=== PATIENT | female | born 1925 | race Hispanic/Latino ===

== ENCOUNTER 2016-10-25 07:02 | Inpatient (IN) | payer MEDICARE, BC ==
--- NOTE | 2016-10-25 08:14 | ED PDOC ---
Arrival/HPI <Lalit Flood P - Last Filed: 10/25/16 11:12> - General Historian: Patient, Spouse - History of Present Illness Time/Duration: Prior to Arrival Symptom Onset: Sudden Symptom Course: Unchanged Quality: Aching Severity Level: Moderate <Beverly Aldanay - Last Filed: 10/25/16 11:18> - General Chief Complaint: Trauma Time Seen by Provider: 10/25/16 07:08 - History of Present Illness Narrative History of Present Illness (Text): 10/25/16 08:06 89yo F with PMHx of VT, HTN, Glaucoma, COPD, Macular degeneration, Depression, DM, Arthritis, GI Ulcers, chronic constipation here for evaluation of fall. Patient states that she was at home using the restroom this morning. She got up and had a fall on to her bottom. She states that she has had multiple similar falls in the past. Her came to assist her and had a fall himself. She crawled to her Life assist button which was by her bed in order to have EMS bring them to the hospital. She also c/o some chest discomfort that started yesterday morning, she states that it feels like a sharp, burning type of pain. She states she had similar problems many years ago. She does report eating some vinegar pickles two nights ago. Denies any headaches. no loss of consciousness. No head trauma. No N/V/D. No Abd pain. No other complaints PMHx: VT, HTN, Glaucoma, COPD, macular degeneration, Depression, DM, Arthritis, GI ulcers, Chronic constipation PSHx: Coronory Stents, Cataract Sx, Breast Bx Social Hx: former 1/2ppd for 20 years smoker. Lives at home with . (Abdon Aldana) Past Medical History - Provider Review Nursing Documentation Reviewed: Yes - Infectious Disease Hx of Infectious Diseases: None - Tetanus Immunization Tetanus Immunization: Unknown - Cardiac Hx Cardiac Disorders: Yes (VT; Cardiac stents) Hx Congestive Heart Failure: Yes Hx Hypertension: Yes - Pulmonary Hx Chronic Obstructive Pulmonary Disease (COPD): Yes - Neurological Hx Neurological Disorder: No - HEENT Hx HEENT Disorder: Yes Hx Cataracts: Yes (Surgery L(10/23). R(06/26). B/L Lens Implant.) Hx Glaucoma: Yes Hx Macular Degeneration: Yes (Laser to bilateral eyes.) - Renal Hx Renal Disorder: No - Endocrine/Metabolic Hx Diabetes Mellitus Type 2: Yes - Hematological/Oncological Hx Blood Disorders: No - Integumentary Hx Dermatological Disorder: Yes - Musculoskeletal/Rheumatological Hx Arthritis: Yes - Gastrointestinal Hx Gastrointestinal Disorders: Yes (CONSTIPATION,H/O GI BLEED,ULCER) - Genitourinary/Gynecological Hx Genitourinary Disorders: Yes (URGENCY,H/O ACUTE CYSTITIS,FREQ UTI) Hx Reproductive Disorders: No - Psychiatric Hx Depression: Yes Hx Physical Abuse: No Hx Substance Use: No - Surgical History Hx Joint Replacement: Yes Hx Orthopedic Surgery: Yes (R HIP) - Anesthesia Hx Anesthesia: Yes - Suicidal Assessment Feels Threatened In Home Enviroment: No <Abdon Aldana - Last Filed: 10/25/16 11:18> Family/Social History - Physician Review Nursing Documentation Reviewed: Yes Family/Social History: Unknown Family HX Smoking Status: Never Smoked Hx Alcohol Use: No Hx Substance Use: No Hx Substance Use Treatment: No <Abdon Aldana - Last Filed: 10/25/16 11:18> Allergies/Home Meds <Lalit Flood - Last Filed: 10/25/16 11:12> <Abdon Aldana - Last Filed: 10/25/16 11:18> Allergies/Adverse Reactions: Allergies acetaminophen [From Percocet] Allergy (Verified 03/25/16 14:05) SWELLING codeine Allergy (Verified 03/25/16 14:05) REDNESS docusate sodium [From Colace] Allergy (Verified 03/25/16 14:05) SWELLING ibuprofen [From Motrin] Allergy (Verified 03/25/16 14:05) SWELLING oxycodone HCl [From Percocet] Allergy (Verified 03/25/16 14:05) SWELLING Home Medications: Home Meds Medication Instructions Recorded Confirmed Ticagrelor [Brilinta] 90 mg PO BID 05/28/12 04/19/15 Acetaminophen [Tylenol 325mg tab] 650 mg PO Q4 PRN 03/25/16 03/25/16 Review of Systems - Physician Review All systems were reviewed & negative as marked: Yes - Review of Systems Constitutional: Normal Eyes: Normal Cardiovascular: Chest Pain. absent: Edema, Calf Pain, ARITA Gastrointestinal: absent: Abdominal Pain, Nausea, Vomiting Genitourinary Female: Normal Musculoskeletal: Arthralgias, Back Pain Skin: Normal Neurological: Normal Endocrine: Normal <Abdon Aldana - Last Filed: 10/25/16 11:18> Physical Exam Vital Signs Reviewed: Yes Temperature: Afebrile Blood Pressure: Hypertensive Pulse: Regular Respiratory Rate: Normal Appearance: Positive for: Well-Appearing, Non-Toxic, Comfortable Pain Distress: Mild Mental Status: Positive for: Alert and Oriented X 3 - Systems Exam Head: Present: Atraumatic, Normocephalic Pupils: Present: PERRL Extroacular Muscles: Present: EOMI Conjunctiva: Present: Normal Mouth: Present: Moist Mucous Membranes Neck: Present: Normal Range of Motion. No: MIDLINE TENDERNESS Respiratory/Chest: Present: Clear to Auscultation. No: Good Air Exchange, Respiratory Distress, Accessory Muscle Use, Wheezes, Rhonchi Cardiovascular: Present: Normal S1, S2 Abdomen: Present: Hernias (large ventral hernia). No: Tenderness, Distention, Rebound, Guarding Back: Present: Other (large external hemmorrhoids. no midline tenderness. Paravertebral tenderness) Upper Extremity: Present: Normal Inspection, Normal ROM, NORMAL PULSES. No: Edema Lower Extremity: Present: Normal Inspection, NORMAL PULSES. No: Edema, CALF TENDERNESS Neurological: Present: GCS=15 Skin: Present: Warm, Dry, Normal Color Psychiatric: Present: Alert, Oriented x 3 <Abdon Aldana - Last Filed: 10/25/16 11:18> Vital Signs Temp Pulse Resp BP Pulse Ox 10/25/16 09:06 80 18 141/60 96 10/25/16 08:15 88 18 161/52 H 100 10/25/16 07:44 97.9 F 88 18 196/82 H 100 10/25/16 07:38 97.8 F 86 18 196/82 H 100 Medical Decision Making <Lalit Flood - Last Filed: 10/25/16 11:12> <Abdon Aldana - Last Filed: 10/25/16 11:18> ED Course and Treatment: A 89 year old female brought in for further evaluation after fall. In agreement with resident note, which includes further HPI details. Patient was seen and evaluated with resident, came up with plan and treatment together. (Lalit Flood) 10/25/16 09:38 89yo F here for evaluation after fall. Also with burning chest pain for 1 day - Maalox - CBC/CMP - Troponin - UA - CT head - CXR - EKG 10/25/16 10:29 EKG - interpreted by me. Sinus @83. Left axis deviation. No apparent ST changes. Upon reevaluation. Maalox helped a little with the epigastric pain, however, she is still reporting some discomfort. UA shows UTI. Culture sent. CT Head negative Troponin negative 10/25/16 11:06 Rocephin given for UTI CXR - interpreted by me. Left upper lobe small infiltrate vs. mass. Will require follow up. Will make medical team aware. Discussed case with Dr. Morris who accepts patient for admission. Solids Control Technician aware of admission and will come to evaluate the patient. (Abdon Aldana) - Lab Interpretations Lab Results: 10/25/16 08:30 10/25/16 08:30 Lab Results 10/25/16 08:30: Sodium 138, Potassium 4.4, Chloride 98, Carbon Dioxide 28, Anion Gap 16, BUN 23 H, Creatinine 0.9, Est GFR ( Amer) > 60, Est GFR ( Non-Af Amer) 59, Random Glucose 112 H, Calcium 9.6, Total Bilirubin 0.4, AST 34 , ALT 25, Alkaline Phosphatase 71, Troponin I < 0.01 D, Total Protein 7.4, Albumin 4.0, Globulin 3.4, Albumin/Globulin Ratio 1.2 10/25/16 08:30: Urine Color Yellow, Urine Appearance Sl cloudy, Urine pH 8.0, Ur Specific [place] 1.015, Urine Protein 30 H, Urine Glucose (UA) Negative, Urine Ketones Negative, Urine Blood Negative, Urine Nitrate Positive H, Urine Bilirubin Negative, Urine Urobilinogen 0.2, Ur Leukocyte Esterase Moderate H, Urine RBC Negative, Urine WBC Tntc, Ur Epithelial Cells 0 - 2, Urine Bacteria Large 10/25/16 08:30: WBC 9.7 D, RBC 3.39 L, Hgb 10.4 L, Hct 31.5 L, MCV 92.9, MCH 30.7, MCHC 33.0, RDW 13.9, Plt Count 297, MPV 8.7, Gran % 69.4 H, Lymph % (Auto ) 18.8 L, [place] % (Auto) 8.1 H, Eos % (Auto) 3.1, Baso % (Auto) 0.6, Gran # 6.73 H, Lymph # 1.8, [place] # 0.8 H, Eos # 0.3, Baso # 0.06 - RAD Interpretation Radiology Orders: 10/25/16 08:14 HEAD W/O CONTRAST [CT] Stat CHEST ONE VIEW [RAD] Stat - Medication Orders Current Medication Orders: Famotidine (Pepcid) 20 mg PO BID DEJON Insulin Human Lispro (Humalog Low) 0 units SC ACHS DEJON PRN Reason: Protocol Discontinued Medications Al Hydrox/Mg Hydrox/Simethicone (Maalox Plus 30 Ml) 30 ml PO STAT STA Stop: 10/25/16 08:25 Last Admin: 10/25/16 08:49 Dose: 30 ml Ceftriaxone Sodium (Rocephin 1 Gram Ivpb) 1 gm in 100 mls @ 200 mls/hr IVPB STAT STA PRN Reason: Protocol Stop: 10/25/16 09:25 Last Admin: 10/25/16 09:30 Dose: 200 mls/hr - PA / LEAD DATABASE ADMINISTRATOR / Resident Statement / has reviewed & agrees with the documentation as recorded. MD/ has examined the patient and agrees with the treatment plan. - Scribe Statement The provider has reviewed the documentation as recorded by the Scribe <Lalit Flood - Last Filed: 10/25/16 11:12> - PA / LEAD DATABASE ADMINISTRATOR / Resident Statement / has reviewed & agrees with the documentation as recorded. / has examined the patient and agrees with the treatment plan. <Abdon Aldana - Last Filed: 10/25/16 11:18> - Scribe Statement Lynne Virgen Provider Scribe Attestation: All medical record entries made by the Scribe were at my direction and personally dictated by me. I have reviewed the chart and agree that the record accurately reflects my personal performance of the history, physical exam, medical decision making, and the department course for this patient. I have also personally directed, reviewed, and agree with the discharge instructions and disposition. (Lalit Flood) Disposition/Present on Arrival <Lalit Flood - Last Filed: 10/25/16 11:12> - Present on Arrival Any Indicators Present on Arrival: No History of DVT/PE: No History of Uncontrolled Diabetes: No Urinary Catheter: No History of Decub. Ulcer: No History Surgical Site Infection Following: None - Disposition Have Diagnosis and Disposition been Completed?: Yes Disposition Time: :17 Patient Plan: Admission <Abdon Aldana - Last Filed: 10/25/16 11:18> - Disposition Diagnosis: UTI (urinary tract infection), Fall, Chest pain Disposition: HOSPITALIZED Patient Problems: Current Active Problems Problem Status Onset Chest pain Acute Fall Acute UTI (urinary tract infection) Acute Condition: GOOD Discharge Instructions (ExitCare): Chest Pain (ED)
[2016-10-25] MEDS ORDERED: Alum-Mag Hydrox-Simethicone Susp (30 mL) PO STA (08:24)
[2016-10-25 08:45] LABS: BASO # 0.06 K/mm3 (0.0-2.0); BASO % 0.6 % (0.0-3.0); EOS # 0.3 (0.0-0.7); EOS % 3.1 % (1.5-5.0); GRAN # 6.73 (1.4-6.5); GRAN % 69.4 % (50.0-68.0); HEMOGLOBIN 10.4 g/dL (12.0-16.0); LYMPH # 1.8 (1.2-3.4); LYMPH % 18.8 % (22.0-35.0); MEAN CELL VOLUME 92.9 fl (80.0-105.0); MEAN CORPUSCULAR HEMOGLOBIN 30.7 pg (25.0-35.0); MEAN PLATELET VOLUME 8.7 fl (7.0-11.0); MONO # 0.8 (0.1-0.6); MONO % 8.1 % (1.0-6.0); PLATELET COUNT 297 10^3/uL (120.0-450.0); RBC 3.39 10^6/uL (3.5-6.1); RED CELL DISTRIBUTION WIDTH 13.9 % (11.5-14.5); URINE BILIRUBIN NEGATIVE (NEGATIVE); URINE BLOOD NEGATIVE (NEGATIVE); URINE GLUCOSE (UA) NEGATIVE (NEGATIVE); URINE LEUKOCYTE ESTERASE MODERATE Leu/uL (NEGATIVE); URINE NITRATE POSITIVE (NEGATIVE); URINE PROTEIN 30 mg/dL (<30 mg/dL); URINE UROBILINOGEN 0.2 E.U./dL (<1 E.U./dL); WHITE BLOOD COUNT 9.7 10^3/ul (4.5-11.0)
[2016-10-25 08:46] LABS: URINE APPEARANCE SL CLOUDY (CLEAR); URINE COLOR YELLOW (YELLOW)
[2016-10-25 08:54] LABS: URINE EPITHELIAL CELLS 0 - 2 /hpf (0-5); URINE RBC NEGATIVE /hpf (0-2); URINE WBC TNTC /hpf (0-6)
[2016-10-25 08:55] LABS: ALB/GLOB RATIO 1.2 (1.1-1.8); ALT/SGPT 25 U/L (7-56); AST/SGOT 34 U/L (15-39); BLOOD UREA NITROGEN 23 mg/dL (7-21); CALCIUM 9.6 mg/dL (8.4-10.5); GFR AFRICAN-AMERICAN > 60; GFR NON-AFRICAN AMERICAN 59; URINE BACTERIA LARGE (NEG)
[2016-10-25] MEDS ORDERED: cefTRIAXone 1 gm 1 GM/100 ML BAG IVPB STA (08:56)
[2016-10-25 09:12] LABS: TROPONIN I < 0.01 ng/mL
--- NOTE | 2016-10-25 10:16 | CT ---
PROCEDURE: CT HEAD WITHOUT CONTRAST. HISTORY: fall COMPARISON: None available. TECHNIQUE: Axial computed tomography images were obtained through the head/brain without intravenous contrast. Radiation dose: Total exam DLP = 690 mGy-cm. This CT exam was performed using one or more of the following dose reduction techniques: Automated exposure control, adjustment of the mA and/or kV according to patient size, and/or use of iterative reconstruction technique. FINDINGS: HEMORRHAGE: No intracranial hemorrhage. BRAIN: No mass effect or edema. Chronic periventricular white matter ischemic disease VENTRICLES: Unremarkable. No hydrocephalus. CALVARIUM: Unremarkable. PARANASAL SINUSES: Unremarkable as visualized. No significant inflammatory changes. MASTOID AIR CELLS: Unremarkable as visualized. No inflammatory changes. OTHER FINDINGS: None. IMPRESSION: No acute hemorrhage.
--- NOTE | 2016-10-25 10:26 | RAD ---
PROCEDURE: CHEST RADIOGRAPH, 1 VIEW HISTORY: fall COMPARISON: 03/21/2016 FINDINGS: LUNGS: There is a minimal density at the left lung apex. Follow-up is recommended to rule out mass or infiltrate. PLEURA: No pneumothorax or pleural fluid seen. CARDIOVASCULAR: Normal. OSSEOUS STRUCTURES: No significant abnormalities. VISUALIZED UPPER ABDOMEN: Normal. OTHER FINDINGS: None. IMPRESSION: There is a minimal density at the left lung apex. Follow-up is recommended to rule out mass or infiltrate.
--- NOTE | 2016-10-25 12:08 | CP.PCM.HP ---
History of Present Illness - History of Present Illness History of Present Illness: HPI: 89 year old female presents due to fall this morning. She was walking out of the bathroom when she fell on her bottom. She denies dizziness, lightheadness , and loss of consciousness at the time. She says she did not hit her head, although she has fallen in the past and did hit her head last time. Her tried to help her, but he also fell. She also complains of chest pain and heartburn for the past day, which was triggered by eating pickles and spicy fish. She also says she gets frequent UTIs because she only has 1 working kidney ; they cannot do surgery because she had a bad reaction to anesthesia in the past. She did not take any medications or eat breakfast this morning. PMH: DC s/p stent, HTN, DM2, constipation, scoliosis, partial mastectomy, CHF, COPD, cataracts s/p surgery, glaucoma, macular degeneration, arthritis, GI bleed , ulcer, depression, acute cystitis, frequent UTI SH: lives at home with her ; denies alcohol, tobacco, and drug use FH: unknown All: acetaminophen, codeine, docusate sodium, ibuprofen, oxycodone HCl Meds: Pepcid, Humalog, Brilinta, Januvia, Prandin, Klor-Con, Lopressor, Glucophage, Cozaar, Imdur, Glucotrol, Lasix, Lanoxin, Lotrisone, Catapres, Oscal -D, Aspirin, Tylenol Present on Admission - Present on Admission Any Indicators Present on Admission: No Review of Systems - Hematologic/Lymphatic Additional comments: Constitutional: pt denies fever, chills, generalized weakness ENT: pt denies dysphagia, otalgia, hearing deficit, rhinorrhea Eyes: pt denies sudden loss of vision, diplopia, blurred vision MSK: pt denies muscle stiffness, joint pain, extremity cramping Cardio: +pt admits to mild sob, mild cp; Pulm: pt denies cough, hemoptysis, wheeze GI: +pt admits to heart burn; pt admits to gas. pt denies loss of appetite, abdominal pain, constipation, melena, n/v/d : pt denies burning on urination, urinary frequency, hematuria, urinary urgency Neuro: pt denies paresis, paresthesia, dizziness, renner, numbness, tingling Derm: pt denies skin changes, lesions, nail changes Endo: pt denies intolerance to heat/cold, diaphoresis, night sweats, polydipsia Psych: pt denies anxiety, depression, mood changes Past Patient History - Infectious Disease Hx of Infectious Diseases: None - Tetanus Immunizations Tetanus Immunization: Unknown - Past Social History Smoking Status: Never Smoked - CARDIAC Hx Cardiac Disorders: Yes (DC; Cardiac stents) Hx Congestive Heart Failure: Yes Hx Hypertension: Yes - PULMONARY Hx Chronic Obstructive Pulmonary Disease (COPD): Yes - NEUROLOGICAL Hx Neurological Disorder: No - HEENT Hx HEENT Problems: Yes Hx Cataracts: Yes (Surgery L(10/23). R(06/26). B/L Lens Implant.) Hx Glaucoma: Yes Hx Macular Degeneration: Yes (Laser to bilateral eyes.) - RENAL Hx Chronic Kidney Disease: No - ENDOCRINE/METABOLIC Hx Diabetes Mellitus Type 2: Yes - HEMATOLOGICAL/ONCOLOGICAL Hx Blood Disorders: No - INTEGUMENTARY Hx Dermatological Problems: Yes - MUSCULOSKELETAL/RHEUMATOLOGICAL Hx Arthritis: Yes - GASTROINTESTINAL Hx Gastrointestinal Disorders: Yes (CONSTIPATION,H/O GI BLEED,ULCER) - GENITOURINARY/GYNECOLOGICAL Hx Genitourinary Disorders: Yes (URGENCY,H/O ACUTE CYSTITIS,FREQ UTI) Hx Reproductive Disorders: No - PSYCHIATRIC Hx Depression: Yes Hx Physical Abuse: No Hx Substance Use: No - SURGICAL HISTORY Hx Joint Replacement: Yes Hx Orthopedic Surgery: Yes (R HIP) - ANESTHESIA Hx Anesthesia: Yes Meds Allergies/Adverse Reactions: Allergies Allergy/AdvReac Type Severity Reaction Status Date / Time acetaminophen [From Percocet] Allergy SWELLING Verified 03/25/16 14:05 codeine Allergy REDNESS Verified 03/25/16 14:05 docusate sodium [From Colace] Allergy SWELLING Verified 03/25/16 14:05 ibuprofen [From Motrin] Allergy SWELLING Verified 03/25/16 14:05 oxycodone HCl [From Percocet] Allergy SWELLING Verified 03/25/16 14:05 Physical Exam - Additional Findings Additional findings: VS as above Constitutional: a&o x 4, nad Head and Neck: neck supple, no jvd, trachea midline, carotid midline, no cervical/head mass Eyes: kia, nonicteric sclera, eom intact ENT: auditory acuity grossly intact, throat not congested, no nasal deformity Cardio: +chest pain relatively reproducible; rrr, no m/r/g, no carotid bruit, nml s1, s2 Pulm: no accessory muscle use, equal nml breath sounds bilaterally, ctab Abd: s/nt/nd, nbs x 4 q, no palpable masses Derm: no rashes, no ulcers, no lesions Extr: +TTP b/l LE, more on R than left; +mild swelling on L LE; mild varicosities. no edema, no cyanosis, no calf tenderness, no lesions Neuro: cn II-XII grossly intact, ue and le 5/5 muscle strength bilaterally, no los ue, le bilaterally and core Results - Vital Signs Recent Vital Signs: Last Vital Signs Temp 97.9 F 10/25/16 07:44 Pulse 80 10/25/16 09:06 Resp 18 10/25/16 09:06 BP 141/60 10/25/16 09:06 Pulse Ox 96 10/25/16 09:06 - Labs Result Diagrams: 10/25/16 08:30 10/25/16 08:30 Assessment & Plan - Assessment and Plan (Free Text) Assessment: 89 F presented with c/o chest pain and possible syncopal event Plan: 1. Chest pain r/o ACS vs PE vs Pneumonia vs MSK Stable vs unstable angina - Patient has a cardiac history of DC and s/p stent placement - EKG shows old infarcts, but no acute changes will f/u EKG x 2 q6h - Troponin negative X 1 will f/u x 2 q6h - ECHO ordered - Lipid panel ordered - TSH ordered Pulmonary embolism - f/u D dimer - f/u Duplex b/l LE ordered - Well's criteria for PE: 4.5 Pneumonia - CXR 10/25: minimal density at L lung apex; follow recommended to rule out mass or infiltrate [pls see official read] changed from previous CXR on admission - f/u CT chest without contrast - Levaquin 750mg ivpb daily Day 1 Empiric treatment for inpatient pneumonia with comorbidities of COPD, DM, and history of tobacco abuse - Pulmonology consult: Dr. Zhao - f/u reccs Musculoskeletal - Pain reproducible - If all other causes ruled out, consider muscle relaxer or NSAID 2. Fall with possible syncopal event r/o cardiac vs neuro vs mechanical Cardiac - Workup as above Neuro - Head CT 10/25: negative for acute bleed - f/u Carotid U/s - f/u RPR, 25-OH vitamin D, vitamin b12, folate - Consult Neurology: Dr. Crockett- f/u [facility] Mechanical - patient uses a walker at home and has had multiple falls in the past - f/u Lumbosacral XR - f/u orthostatics - patient is allergic to acetaminophen and ibuprofen- will address pain medication prn 3. UTI - UA 10/25 Protein +30 + Nitrates + Moderate Leuk esterase + Large bacteria - f/u Urine Culture - f/u blood culture - Patient got 1 dose Rocephin in ED - Continue Rocephin 1gm ivpb daily 4. Hx of CAD s/p stents - f/u Digoxin level - Continue home Ticagrelor 5. Hx of Diabetes Mellitus - f/u HgbA1c - low dose RISS - hold oral hyperglycemics 6. Hx of HTN - Cozaar, Imdur, Catapres 7. Hx of CHF - Lasix 8. Hx of Arthritis - Oscal-D DVT/GI PPX - On Ticagrelor; pepcid
[2016-10-25] MEDS: Insulin Lispro (humaLOG) LOW Coverage SC SCH ×3 (12:19→22:30)
[2016-10-25 13:20] VITALS: BMI 19.3
[2016-10-25] MEDS ORDERED: Pneumococcal 23-Valent Vaccine IM ONE (13:21)
--- NOTE | 2016-10-25 16:08 | CT ---
PROCEDURE: CT Chest without contrast HISTORY: RUL/[place] Consolidation COMPARISON: None. TECHNIQUE: Contiguous axial images were obtained through the chest without intravenous contrast enhancement. Sagittal and coronal reconstructions were performed. Radiation dose (DLP): mGy-cm. This CT exam was performed using one or more of the following dose reduction techniques: Automated exposure control, adjustment of the mA and/or kV according to patient size, and/or use of iterative reconstruction technique. FINDINGS: LUNGS: 2.7 centimeter x 3.0 centimeter wedge-shaped area of consolidation in the left apical segment extending to the pleural margin. The margins are significantly irregular. While this could simply represent consolidation, neoplasm is not excluded and correlation with PET-CT scan is recommended. MEDIASTINUM: Unremarkable thoracic aorta. No aneurysm. Normal sized heart. Main pulmonary artery unremarkable. No vascular congestion. No lymphadenopathy. Extensive calcific nodularity of the left lobe of thyroid gland; correlate with thyroid ultrasound if clinically indicated. PLEURA: No pleural fluid. No pneumothorax. BONES: No fracture. No destructive lesion. UPPER ABDOMEN: Grossly unremarkable. OTHER FINDINGS: None. IMPRESSION: 2.7 centimeter x 3.0 centimeter wedge-shaped area of consolidation in the left apical segment extending to the pleural margin. The margins are significantly irregular. While this could simply represent consolidation, neoplasm is not excluded and correlation with PET-CT scan is recommended.
[2016-10-25] MEDS: levoFLOXacin 750 mg in D5W 750 MG/150 ML BAG IVPB SCH (17:36)
--- NOTE | 2016-10-25 19:07 | CON ---
DATE: 10/25/2016 CHIEF COMPLAINT: Near syncope, status post fall. HISTORY OF PRESENT ILLNESS: An 89-year-old woman who is well known to me from 03/2016 with past medical history of coronary artery disease, status post cardiac stents, congestive heart failure, hypertension and COPD, history of UT, history of deconditioned state, history of vasovagal syncope in the past, history of osteoarthritis and chronic low back pain from underlying arthritis, who was walking out of the bathroom where she fell and tripped to the bottom. She states she has been unstable on her feet, but did not loose consciousness or did not have any dizzy episodes or lightheadedness. She denies any vertigo at this time. She denies any hitting in the head. She has been getting frequent UTIs and she has positive UTI with positive leukocyte esterase and positive nitrites on UA, cultures pending. She has a mild elevated BUN and is possibly mildly dehydrated. Otherwise, she is moving all extremities and following commands. She has neuropathic changes on neuro exam. PAST MEDICAL HISTORY: History of hypertension, history of coronary artery disease status post UT, status post stents, constipation, scoliosis, CHF, COPD, cataract, glaucoma, macular degeneration, osteoarthritis, frequent UTIs, vasovagal syncope in the past. FAMILY HISTORY: Not contributory. SOCIAL HISTORY: No illicit drug use, smoking, or EtOH abuse. ALLERGIES: ALLERGIC TO ACETAMINOPHEN, CODEINE, DOCUSATE, IBUPROFEN, AND OXYCODONE. MEDICATIONS: Reviewed by the nurse and per reconciliation sheet. REVIEW OF SYSTEMS: A 14-point review of systems is negative except as per the HPI. PHYSICAL EXAMINATION: GENERAL: The patient is sitting up in the bed. In no acute distress. VITAL SIGNS: Temperature over 98.5, pulse rate of 86, blood pressure is 155/60, respiratory rate of 20, and oxygen saturation 100% via room air. HEENT: Atraumatic and normocephalic. PERRLA. Extraocular muscles intact. NECK: Supple. No JVD. No adenopathy noted. LUNGS: Clear to auscultation. No adventitious sounds. HEART: S1 and S2, normal rate and rhythm. No murmurs, rubs, or gallops. ABDOMEN: Soft, nontender, nondistended. Bowel sounds are present. She has chronic umbilical hernia which has been present for many years. EXTREMITIES: No clubbing and no cyanosis. Peripheral pulses are 2+, felt bilaterally. NEUROLOGIC: The patient is alert and oriented to person, place, month and year. Recall after 5 minutes is 0 of 3, poor attention span, slow throughout process. Cranial nerves II through XII are intact. Motor exam: Slight increased tone throughout. Moves all extremities equally. Very cachectic looking. Atrophy of both proximal and distal muscles. Toes are downgoing bilaterally. Sensory exam: Decreased to light touch and pinprick up to calves on the legs. Decreased proprioception of toes. Coordination: Siqigz-my-wlln intact. DTRs are 1+ and absent at the knees and ankles bilaterally. Gait is deferred for now. LABORATORY DATA: Sodium is 138, potassium 4.4, chloride 98, carbon dioxide is 28, BUN of 23, creatinine of 0.9, random glucose 122. ASSESSMENT AND PLAN: An 89-year-old woman with past medical history of coronary artery disease, status post cardiac stents, congestive heart failure, chronic obstructive pulmonary disease, hypertension, history of myocardial infarction, macular degeneration, history of vasovagal syncope, who was brought in status post fall while walking to the bathroom. She says she fell mostly mechanical. No prior warning. No diaphoresis. No palpitations. No dizziness or lightheadedness or vertigo at this time prior to her fall. She had deconditioned. She does have features of diabetic peripheral neuropathy. Gait instability is secondary to diabetic peripheral neuropathy. She did not have a syncopal event or any loss of conscious, I repeat. She is mildly dehydrated. A CAT scan of the head showed no acute intracranial abnormality. RECOMMENDATIONS: At this time we will recommend: 1. Orthostatic vital signs. 2. Aspirin and statin for stroke prevention. 3. Monitor electrolytes to correct accordingly and hydrate gently the patient. 4. Keep her systolic blood pressure to 130-140 mmHg. 5. Continue with antibiotics as per her UA showing a positive UTI, given that her leukocyte esterase and nitrites are positive. 6. Continue with physical and occupational therapy assessment for deconditioned state and low back pain and avoid over sedative medications. No further neurological workup needed at this time. Thank you for this consultation. Medardo Crockett MD
--- NOTE | 2016-10-25 19:42 | US ---
HISTORY: Leg pain and swelling. Evaluate for DVT PHYSICIAN(S): Mata Gutierrez MD. TECHNIQUE: Duplex sonography and color-flow Doppler with graded compression were used to evaluate the deep venous systems of both lower extremities. FINDINGS: The visualized deep venous systems of both lower extremities are sonographically normal and compressible. Normal wave forms and augmentation are seen. There is no sonographic evidence for deep venous thrombosis in the visualized segments of both lower extremities. IMPRESSION: No sonographic evidence for deep venous thrombosis in the visualized segments of both lower extremities.
--- NOTE | 2016-10-25 23:18 | CARD ---
APPROVED REPORT EKG Measurement Heart [id number] <Conclusion> Sinus rhythm with 1st degree AV block Left axis deviation Inferior infarct, age undetermined Anteroseptal infarct, age undetermined Abnormal ECG
--- NOTE | 2016-10-25 23:36 | CARD ---
APPROVED REPORT EKG Measurement Heart [id number] <Conclusion> Sinus rhythm with 1st degree AV block Possible Left atrial enlargement Left axis deviation Septal infarct, age undetermined Inferior infarct, age undetermined Abnormal ECG
[2016-10-26 06:30] LABS: BASO # 0.05 K/mm3 (0.0-2.0); BASO % 0.6 % (0.0-3.0); EOS # 0.2 (0.0-0.7); EOS % 2.3 % (1.5-5.0); GRAN # 6.17 (1.4-6.5); GRAN % 68.8 % (50.0-68.0); HEMOGLOBIN 9.7 g/dL (12.0-16.0); LYMPH # 1.7 (1.2-3.4); LYMPH % 18.9 % (22.0-35.0); MEAN CELL VOLUME 92.2 fl (80.0-105.0); MEAN CORPUSCULAR HEMOGLOBIN 30.2 pg (25.0-35.0); MEAN CORPUSCULAR HGB CONC 32.8 g/dl (31.0-37.0); MEAN PLATELET VOLUME 8.9 fl (7.0-11.0); MONO # 0.8 (0.1-0.6); MONO % 9.4 % (1.0-6.0); PLATELET COUNT 314 10^3/uL (120.0-450.0); RBC 3.21 10^6/uL (3.5-6.1); RED CELL DISTRIBUTION WIDTH 13.7 % (11.5-14.5)
[2016-10-26 06:36] LABS: ALB/GLOB RATIO 1.3 (1.1-1.8); ALBUMIN 3.7 g/dL (3.0-4.8); CALCIUM 8.9 mg/dL (8.4-10.5); MAGNESIUM 1.9 mg/dL (1.7-2.2)
--- NOTE | 2016-10-26 07:35 | CP.PCM.PN ---
Subjective - Date & Time of Evaluation Date of Evaluation: 10/26/16 Time of Evaluation: 07:30 - Subjective Subjective: PGY2 Medicine note for Dr. Morris Patient seen and examined this morning at bedside after she had carotid u/s done. She was combative, agitated, and confused; patient was AO x 0. As per nursing she was slightly confused the night prior and then when she went down to have her imaging done she became increasingly confused. Patient was refusing medications and refusing to eat and was paranoid and convinced the hospital staff were trying to poison her. She was noncompliant. Awaiting son and to visit. As per daughter who I spoke to on the phone, when patient was admitted last time she also had multiple episodes of confusion and disorientation with associated agitation. Objective - Vital Signs/Intake and Output Vital Signs (last 24 hours): Temp Pulse Resp BP Pulse Ox 99.1 F 94 H 19 164/61 H 95 10/25/16 16:00 10/25/16 17:36 10/25/16 16:00 10/25/16 17:36 10/25/16 16:00 Intake and Output: 10/26/16 10/26/16 06:59 18:59 Intake Total 120 Output Total 950 Balance -830 - Medications Medications: Current Medications Acetaminophen (Tylenol 325mg Tab) 650 mg PO Q6H PRN PRN Reason: Pain, moderate (4-7) Last Admin: 10/25/16 23:39 Dose: 650 mg Aspirin (Ecotrin) 81 mg PO DAILY [facility] Atorvastatin Calcium (Lipitor) 20 mg PO DIN [facility] Betamethasone/Clotrimazole (Lotrisone) 0 gm TOP BID [facility] Calcium/Vitamin D (Oscal-D 250 Mg-125 Units Tab) 1 tab PO DAILY [facility] Clonidine HCl (Catapres) 0.1 mg PO BID [facility] Last Admin: 10/25/16 17:35 Dose: 0.1 mg Digoxin (Lanoxin) 0.125 mg PO 1400 DEJON Famotidine (Pepcid) 20 mg PO BID [facility] Last Admin: 10/25/16 17:37 Dose: 20 mg Furosemide (Lasix) 40 mg PO DAILY [facility] Ceftriaxone Sodium (Rocephin 1 Gram Ivpb) 1 gm in 100 mls @ 100 mls/hr IVPB DAILY DEJON PRN Reason: Protocol Levofloxacin/Dextrose (Levaquin 750mg) 750 mg in 150 mls @ 100 mls/hr IVPB Q48H [facility] Last Admin: 10/25/16 17:36 Dose: 100 mls/hr Sodium Chloride (Sodium Chloride 0.9%) 1,000 mls @ 80 mls/hr IV .[id number] [facility] Insulin Human Lispro (Humalog Low) 0 units SC ACHS [facility] PRN Reason: Protocol Last Admin: 10/25/16 22:30 Dose: Not Given Isosorbide Mononitrate (Imdur) 30 mg PO DAILY [facility] Losartan Potassium (Cozaar) 50 mg PO BID [facility] Last Admin: 10/25/16 17:35 Dose: 50 mg Metoprolol Tartrate (Lopressor) 100 mg PO BID [facility] Last Admin: 10/25/16 17:36 Dose: 100 mg Ticagrelor (Brilinta) 90 mg PO BID [facility] Last Admin: 10/25/16 17:35 Dose: 90 mg - Labs Labs: 10/26/16 06:10 10/26/16 06:10 - Constitutional Appears: Combative, Confused, Other (patient refusing to be examined) Assessment and Plan - Assessment and Plan (Free Text) Assessment: 89yo female PMHx TX s/p stent, HTN, DM2, constipation, scoliosis, partial masectomy, CHF, COPD, catarats s/p surgery, glaucoma, macular degeneration, arthritis, PUD, depression, cystitis, frequent UTI presenting with fall and chest pain Plan: 1. Chest pain r/o ACS vs PE vs Pneumonia vs MSK STEMI vs NSTEMI vs stable angina vs unstable angina - Patient has a cardiac history of TX and s/p stent placement - EKG x 3 shows old infarcts, but no acute changes - Troponin negative X 3 - ECHO 10/26: LV is normal size, normal LV wall thickness, LV is borderline, normal LV segmental wall motion, Grade I abnl relaxation pattern, moderate aortic regurgitation, mitral valve is moderately thickened - Lipid panel TG : 245 Cholesterol : 198 LDL : 150 HDL : 28 - Thyroid panel T4 : 1.33 TSH : 1.94 - ASA 81mg po daily - Lipitor 20mg po hs - Brilinta 90mg po bid Pulmonary embolism - D dimer : 1.36 - CTA : f/u - Duplex b/l LE : negative for DVT - Well's criteria for PE: 4.5 Pneumonia - CXR 10/25 : minimal density at L lung apex; follow recommended to rule out mass or infiltrate [pls see official read] changed from previous CXR on admission - CT chest without contrast : 2.7cm x 3.0cm wedge-shaped area of consolidation in the left apical segment extending to the pleural margin. The margins are significantly irregular. While this could simply represent consolidation, neoplasm is not excluded and correlation with a PET-CT is recommended. - Levaquin 750mg ivpb daily Day 2 Empiric treatment for inpatient pneumonia with comorbidities of COPD, DM, and history of tobacco abuse - Pulmonology consult: Dr. Zhao Musculoskeletal - Pain reproducible - If all other causes ruled out, consider muscle relaxer or NSAID 2. Fall with possible syncopal event r/o cardiac vs neuro vs mechanical Cardiac - Workup as above Neuro - Head CT 10/25: negative for acute bleed - Carotid U/s: b/l 20-39% proximal ICA stenoses, antegrade flow in b/l vertebral arteries - RPR : nonreactive - 25-OH vitamin D : 32.5 - Vitamin b12 : 473 - Folate : > 20 - Consult Neurology: Dr. Crockett- f/u reccs - Psych consulted for AMS Mechanical - patient uses a walker at home and has had multiple falls in the past - Lumbosacral XR: profound osteopenia, multiple presumed old osteopenic compression fractures. New acute superimposed fracture is not excluded. - f/u orthostatics 3. UTI - UA 10/25 Protein +30 + Nitrates + Moderate Leuk esterase + Large bacteria - Urine Culture : gram negative rods prelim - f/u blood culture : prelim negative - Rocephin 1gm ivpb daily 4. Hx of CAD s/p stents - Digoxin: 1.2 - Continue home Ticagrelor 5. Hx of Diabetes Mellitus - f/u HgbA1c - low dose RISS - hold oral hyperglycemics 6. Hx of HTN - Cozaar, Imdur, Catapres 7. Hx of CHF - Lasix 8. Hx of Arthritis - Oscal-D DVT/GI PPX - On Ticagrelor; pepcid Case discussed with Dr. Alexandra Conroy PGY2
[2016-10-26] MEDS: Insulin Lispro (humaLOG) LOW Coverage SC SCH ×4 (07:58→21:45)
[2016-10-26] MEDS: Sodium Chloride 0.9% 1,000 ML IV SCH ×2 (07:58→21:52)
[2016-10-26 08:19] LABS: % IRON SATURATION 28 % (20-55); IRON 93 ug/dL (45-180); TOTAL IRON BINDING CAPACITY 327 ug/dL (265-497)
[2016-10-26] MEDS ORDERED: Iohexol 350 MG/100 ML VIAL ONE ×2 (09:01→13:49)
[2016-10-26] MEDS: cefTRIAXone 1 gm 1 GM/100 ML BAG IVPB SCH (09:58)
[2016-10-26] MEDS: Calcium-Vit D 250 mg-125 Units Tab UD PO SCH (09:59)
[2016-10-26] MEDS: Clotrimazole/Betamethasone Cream(15 gm) TOP SCH ×3 (09:59→20:12)
--- NOTE | 2016-10-26 10:36 | RAD ---
PROCEDURE: Radiographs of the Lumbar Spine. HISTORY: s/p fall on buttocks COMPARISON: No prior. FINDINGS: BONES: Diffuse osteopenia. Loss of height of virtually every thoracolumbar vertebral body. Mild scoliosis DISC SPACES: Preserved intervertebral disc spaces. OTHER FINDINGS: Calcified nonaneurysmal abdominal aorta. IMPRESSION: Profound osteopenia, multiple presumed old osteopenic compression fractures. New/acute superimposed fracture is not excluded. No preliminary report provided by emergency department personnel.
[2016-10-26 11:37] LABS: FERRITIN 22.4 ng/mL
[2016-10-26 12:07] LABS: FOLATE > 20.0 ng/mL
[2016-10-26 12:08] LABS: FOLATE > 20.0 ng/mL
[2016-10-26] MEDS: Digoxin 125 mcg (0.125 mg) Tab PO SCH (14:57)
--- NOTE | 2016-10-26 17:40 | US ---
PROCEDURE: Bilateral carotid artery duplex ultrasound HISTORY: Carotid stenosis PHYSICIAN(S): Mata Gutierrez MD. TECHNIQUE: Duplex sonography and color-flow Doppler were used to evaluate the carotid bifurcations and limited segments of the vertebral arteries bilaterally. FINDINGS: There is mild smooth heterogeneous plaque noted at the carotid bifurcations bilaterally. The peak systolic velocity in the proximal right internal carotid artery is 87 cm/sec. This corresponds to a 20 to 39% proximal right ICA stenosis. Normal systolic velocities are noted in the proximal right external carotid artery. There is antegrade flow in the right vertebral artery. The peak systolic velocity in the proximal left internal carotid artery is 82 cm/sec. This corresponds to a 20 to 39% proximal left ICA stenosis. Normal systolic velocities are noted in the proximal left external carotid artery. There is antegrade flow in the left vertebral artery. IMPRESSION: 1. Bilateral 20-39% proximal ICA stenoses. 2. Antegrade flow in both vertebral arteries.
--- NOTE | 2016-10-26 18:28 | CARD ---
APPROVED REPORT EXAM: Two-dimensional and M-mode echocardiogram with Doppler and color Doppler. INDICATION Chest Pain 2D DIMENSIONS IVSd1.0 (0.7-1.1cm)LVDd3.6 (3.9-5.9cm) PWd1.1 (0.7-1.1cm)LVDs2.7 (2.5-4.0cm) FS (%) 24.9 %LVEF (%)50.2 (>50%) M-Mode DIMENSIONS Aortic Root2.90 (2.2-3.7cm)Aortic Cusp Exc.1.50 (1.5-2.0cm) Aortic Valve AoV Peak Cuspkhdi106.0cm/Misbah Peak GR.6mmHgAI P 1/2 [id number] Mitral Valve MV E Mxytftfg58.5cm/sMV E Peak Gr.8mmHgMV A Btpkhgno970.0cm/s MV E Mean Gr.3mmHgMV PYJ073qhT/A ratio0.6 MVA (PHT)1.20cm2 TDI Lateral E' Peak V6.04cm/sMedial E' Peak V3.31cm/sE/Lateral E'13.2 E/Medial E'24.0 Pulmonary Valve PV Peak Fdixvymw17.7cm/sPV Peak Grad.1mmHg Tricuspid Valve TR Peak Tvziryfk554yg/sRAP VWWJIANX77rmAoPV Peak Gr.19mmHg [id number] LEFT VENTRICLE The left ventricle is normal size. There is normal left ventricular wall thickness. Left ventricle is borderline. There is normal LV segmental wall motion. Transmitral Doppler flow pattern is Grade I-abnormal relaxation pattern. RIGHT VENTRICLE The right ventricle is normal size. There is normal right ventricular wall thickness. The right ventricular systolic function is normal. ATRIA The left atrium size is normal. The right atrium size is normal. AORTIC VALVE The aortic valve is moderately sclerotic. There is moderate aortic regurgitation. MITRAL VALVE The mitral valve is moderately thickened , a vegitation can not be ruled out, clinical correlation is suggested There is no mitral valve stenosis. <Conclusion> The left ventricle is normal size. There is normal left ventricular wall thickness. Left ventricle is borderline. There is normal LV segmental wall motion. Transmitral Doppler flow pattern is Grade I-abnormal relaxation pattern. There is moderate aortic regurgitation. The mitral valve is moderately thickened , a vegitation can not be ruled out, clinical correlation is suggested
--- NOTE | 2016-10-26 20:22 | CT ---
EXAM: CT Angiography Chest With Intravenous Contrast CLINICAL HISTORY: 89 years old, female; Pain; Chest pain; Patient HX: + d dimer; Additional info: + d dimer TECHNIQUE: Axial computed tomographic angiography images of the chest with intravenous contrast using pulmonary embolism protocol. All CT scans at this facility use one or more dose reduction techniques, viz.: automated exposure control; ma/kV adjustment per patient size (including targeted exams where dose is matched to indication; i.e. head); or iterative reconstruction technique. MIP reconstructed images were created and reviewed. Coronal and sagittal reformatted images were created and reviewed. CONTRAST: 95 mL of ominapque 350 administered intravenously. EXAM DATE/TIME: 10/26/2016 7:24 AM COMPARISON: CT - CHEST W/O CONTRAST 10/25/2016 3:17:13 PM FINDINGS: Limitations: Skeletal deformity limits evaluation of the chest Heart, Aorta and Pulmonary arteries: The heart is enlarged. There are coronary calcifications. There is no aortic aneurysm or dissection.There are vascular calcifications. Bolus timing and patient motion limit evaluation of pulmonary arteries. There is central pulmonary emboli. Peripheral vessels are difficult to evaluate. Lungs and pleural spaces: Trachea and main bronchi are patent. There is heterogeneous oral base masslike opacity in the posterior aspect of the left upper lobe. Mass measures approximately 2.5 x 2.9 cm, image 90 series 601. There is minimal airspace disease in the superior segment of the left upper lobe. Right lung is clear. There is minimal irregular pleural thickening in the right hemithorax. There is dependent atelectasis in both lung bases. There is minimal compressive left lower lobe atelectasis posterior to the heart. There are no effusions Mediastinum: There are multiple mildly prominent mediastinal nodes. There is no hilar adenopathy. Esophagus is unremarkable. Thyroid: Thyroid is not optimally evaluated. There is a complex partially calcified 3.8 x 2.7 cm left thyroid nodule with substernal extension. Right lobe appears grossly unremarkable. Bones/joints: There is severe exaggeration of thoracic kyphosis. Impression fractures at multiple levels. Compression deformity is thoracic spine are greatest at T7, T8-T9 T10-T11 and T12. There is severe deformity at L2. There are compression fractures L3 and L4. There is L1/L2 fusion. There are minimally displaced bilateral rib fractures. Soft tissues: unremarkable Upper abdomen: There are no acute abnormalities in the visualized portion of the abdomen. IMPRESSION: Limited bolus timing skeletal deformity; no aortic aneurysm or central pulmonary emboli; masslike opacity left upper lobe infectious/inflammatory versus neoplastic; shotty mediastinal nodes; osteopenia suggesting osteoporosis with multiple fractures; bilateral nondisplaced rib fractures Additional findings as described above.
[2016-10-27 07:02] LABS: BASO # 0.04 K/mm3 (0.0-2.0); BASO % 0.5 % (0.0-3.0); EOS # 0.2 (0.0-0.7); GRAN # 4.67 (1.4-6.5); GRAN % 64.2 % (50.0-68.0); HEMOGLOBIN 8.7 g/dL (12.0-16.0); LYMPH # 1.6 (1.2-3.4); LYMPH % 21.7 % (22.0-35.0); MEAN CELL VOLUME 91.3 fl (80.0-105.0); MEAN CORPUSCULAR HEMOGLOBIN 30.1 pg (25.0-35.0); MEAN PLATELET VOLUME 8.3 fl (7.0-11.0); MONO # 0.8 (0.1-0.6); MONO % 10.6 % (1.0-6.0); PLATELET COUNT 243 10^3/uL (120.0-450.0); RBC 2.89 10^6/uL (3.5-6.1); WHITE BLOOD COUNT 7.3 10^3/ul (4.5-11.0)
[2016-10-27 07:16] LABS: ALB/GLOB RATIO 1.2 (1.1-1.8); ALBUMIN 3.2 g/dL (3.0-4.8); ALT/SGPT 24 U/L (7-56); AST/SGOT 25 U/L (15-39); BLOOD UREA NITROGEN 20 mg/dL (7-21); CALCIUM 8.2 mg/dL (8.4-10.5); GFR AFRICAN-AMERICAN > 60; GFR NON-AFRICAN AMERICAN 59; MAGNESIUM 1.9 mg/dL (1.7-2.2)
[2016-10-27] MEDS: Insulin Lispro (humaLOG) LOW Coverage SC SCH ×4 (07:28→23:09)
[2016-10-27] MEDS: cefTRIAXone 1 gm 1 GM/100 ML BAG IVPB SCH (09:43)
[2016-10-27] MEDS: Calcium-Vit D 250 mg-125 Units Tab UD PO SCH (09:43)
[2016-10-27] MEDS: Clotrimazole/Betamethasone Cream(15 gm) TOP SCH ×2 (09:44→17:18)
[2016-10-27] MEDS: Digoxin 125 mcg (0.125 mg) Tab PO SCH (13:24)
[2016-10-27] MEDS: levoFLOXacin 750 mg in D5W 750 MG/150 ML BAG IVPB SCH (13:52)
--- NOTE | 2016-10-27 15:12 | CP.PCM.PN ---
Subjective - Date & Time of Evaluation Date of Evaluation: 10/27/16 Time of Evaluation: 15:09 - Subjective Subjective: Medicine progress note for Dr. Morris/Dr. Azar service - Raj Marino PGY2 Patient seen and examined at bedside in conjunction with attending, Dr. Bliss. Patient was agitated and verbally aggressive during rounds this morning. Refused to answer questions. Limited ROS obtainable. No acute overnight events reported by nursing staff. Objective - Vital Signs/Intake and Output Vital Signs (last 24 hours): Temp Pulse Resp BP Pulse Ox 98 F 81 20 144/57 L 98 10/26/16 08:23 10/27/16 14:00 10/26/16 08:23 10/27/16 09:41 10/26/16 08:23 Intake and Output: 10/27/16 10/27/16 06:59 18:59 Intake Total 480 Output Total 600 Balance -600 480 - Medications Medications: Current Medications Acetaminophen (Tylenol 325mg Tab) 650 mg PO Q6H PRN PRN Reason: Pain, moderate (4-7) Last Admin: 10/25/16 23:39 Dose: 650 mg Aspirin (Ecotrin) 81 mg PO DAILY [facility] Last Admin: 10/27/16 09:41 Dose: 81 mg Atorvastatin Calcium (Lipitor) 20 mg PO DIN [facility] Last Admin: 10/26/16 17:09 Dose: 20 mg Betamethasone/Clotrimazole (Lotrisone) 0 gm TOP BID [facility] Last Admin: 10/27/16 09:44 Dose: 1 u Calcium/Vitamin D (Oscal-D 250 Mg-125 Units Tab) 1 tab PO DAILY [facility] Last Admin: 10/27/16 09:43 Dose: 1 tab Clonidine HCl (Catapres) 0.1 mg PO BID [facility] Last Admin: 10/27/16 09:43 Dose: 0.1 mg Digoxin (Lanoxin) 0.125 mg PO 1400 [facility] Last Admin: 10/27/16 13:24 Dose: 0.125 mg Famotidine (Pepcid) 20 mg PO BID [facility] Last Admin: 10/27/16 09:43 Dose: 20 mg Furosemide (Lasix) 40 mg PO DAILY [facility] Last Admin: 10/27/16 09:41 Dose: 40 mg Ceftriaxone Sodium (Rocephin 1 Gram Ivpb) 1 gm in 100 mls @ 100 mls/hr IVPB DAILY [facility] PRN Reason: Protocol Last Admin: 10/27/16 09:43 Dose: 100 mls/hr Levofloxacin/Dextrose (Levaquin 750mg) 750 mg in 150 mls @ 100 mls/hr IVPB Q48H [facility] Last Admin: 10/27/16 13:52 Dose: 100 mls/hr Sodium Chloride (Sodium Chloride 0.9%) 1,000 mls @ 80 mls/hr IV .[id number] [facility] Last Admin: 10/26/16 21:52 Dose: 80 mls/hr Insulin Human Lispro (Humalog Low) 0 units SC ACHS [facility] PRN Reason: Protocol Last Admin: 10/27/16 11:34 Dose: 2 units Isosorbide Mononitrate (Imdur) 30 mg PO DAILY [facility] Last Admin: 10/27/16 09:43 Dose: 30 mg Losartan Potassium (Cozaar) 50 mg PO BID [facility] Last Admin: 10/27/16 09:43 Dose: 50 mg Metoprolol Tartrate (Lopressor) 100 mg PO BID [facility] Last Admin: 10/27/16 09:43 Dose: 100 mg Ticagrelor (Brilinta) 90 mg PO BID [facility] Last Admin: 10/27/16 09:43 Dose: 90 mg - Labs Labs: 10/27/16 06:00 10/27/16 06:00 - Constitutional Appears: Non-toxic, No Acute Distress - Head Exam Head Exam: ATRAUMATIC, NORMAL INSPECTION, NORMOCEPHALIC - Eye Exam Eye Exam: EOMI, PERRL - ENT Exam ENT Exam: Mucous Membranes Moist - Neck Exam Neck Exam: Normal Inspection - Respiratory Exam Respiratory Exam: Decreased Breath Sounds. absent: Rales, Rhonchi, Wheezes - Cardiovascular Exam Cardiovascular Exam: +S1, +S2. absent: Gallop, Rubs, Murmur - GI/Abdominal Exam GI & Abdominal Exam: Soft. absent: Distended, Firm, Guarding, Rigid, Tenderness , Rebound - Neurological Exam Neurological Exam: Alert, Awake - Psychiatric Exam Psychiatric exam: Agitated - Skin Skin Exam: Dry, Intact, Normal Color, Warm Assessment and Plan - Assessment and Plan (Free Text) Plan: 89yo female PMHx [place] s/p stent, HTN, DM2, constipation, scoliosis, partial masectomy, CHF, COPD, catarats s/p surgery, glaucoma, macular degeneration, arthritis, PUD, depression, cystitis, frequent UTI presenting with fall and chest pain 1. Chest pain - Patient has a cardiac history of ME and s/p stent placement - EKG x 3 revealed no acute changes relative to prior EKGs - Troponin negative x3 - Echo 10/26 reviewed; revealed LVEF of 50%, RSVP 29mmHg, moderate AR; see full report - D-dimer elevated however CTA revealed no PE however was notable for mass-like opacity in the DAVID (infectious vs inflammatory vs neoplastic); see full report - Lipid panel reviewed - TSH within normal limits - ASA 81mg po daily - Lipitor 20mg po hs - Brilinta 90mg po bid - Duplex b/l LE : negative for DVT 2. Pneumonia - CXR 10/25 reviewed; minimal density at L lung apex; see full report - CT chest without contrast revewed; 2.7cm x 3.0cm wedge-shaped area of consolidation in the left apical segment extending to the pleural margin. The margins are significantly irregular. While this could simply represent consolidation, neoplasm is not excluded and correlation with a PET-CT is recommended; see full report - Continue Levaquin 750mg ivpb daily Day 3 for empiric treatment for pneumonia - afebrile, no leukocytosis - Pulmonology consult: Dr. Zhao 3. s/p Fall with possible syncopal event - Cardiac Workup as detailed above - Head CT 10/25 revealed no acute intracranial abnormalities; see full report - Carotid US revealed b/l 20-39% proximal ICA stenoses, antegrade flow in b/l vertebral arteries - RPR : nonreactive - Cardiology consulted - Dr. Gaffney - Neurology consulted - Dr. Crockett - Psych consulted for AMS - Patient uses a walker at home and has had multiple mechanical falls in the past - Lumbosacral XR: profound osteopenia, multiple presumed old osteopenic compression fractures. New acute superimposed fracture is not excluded. - Orthostatic VS 4. UTI - UA on 10/25 notable for nitrates, mod leuk esterase and large bacteria - Urine Culture positive for pansensitive Ecoli - Rocephin 1gm ivpb daily 5. Hx of CAD s/p stents - Digoxin: 1.2 - Continue home Ticagrelor 6. Hx of Diabetes Mellitus - Fingersticks ACHS - low dose RISS - Consistent carb diet 7. Hx of HTN - Cozaar, Imdur, Catapres 8. Hx of CHF - Lasix 9. Hx of Arthritis - Oscal-D 10. DVT/GI PPX - SCDs/pepcid Patient seen and case discussed with attending, Dr. Bliss
[2016-10-27] MEDS: Sodium Chloride 0.9% 1,000 ML IV SCH ×2 (17:17→23:09)
--- NOTE | 2016-10-27 22:48 | PN ---
SUBJECTIVE: The patient was seen and examined with the medical appointment scheduler on rounds. The patient was seen in 360, bed 1. The patient was alert, awake, responsive, confused, disoriented, abusive and cursing with inappropriate language. The patient was seen lying in the bed. The patient is on one-to-one. According to the nurse's note, the patient has been disoriented. The patient slept overnight. The patient has been on one-to-one. The patient's vital signs and diagnostic data all reviewed. Please refer to the progress note by the medical appointment scheduler from 10/27. IMPRESSION AND PLAN: 1. Possible non-ST elevation myocardial infarction versus stable angina versus unstable angina. 2. Chest pain. 3. Status post fall with questionable syncope. 4. Hypertension. 5. Dementia. 6. Nonspecific anemia. 7. Granulocytosis. 8. Elevated D-dimer. 9. Hyperglycemia. 10. Hypercholesterolemia and hypertriglyceridemia. 11. Proteinuria, pyuria and bacteriuria. 12. Escherichia coli urinary tract infection. 13. Cardiomegaly. 14. Left upper lobe mass-like opacity, etiology undetermined with mediastinal lymphadenopathy and osteopenia and osteoporosis with multiple fractures. 15. Bilateral rib fracture. 16. Left thyroid nodule. 17. Thoracic kyphosis. 18. Multiple thoracic compression fractures. 19. Moderate aortic regurgitation and moderately sclerotic aortic valve. 20. Moderately thickened mitral valve, unable to rule out vegetation. 21. Left upper lobe consolidation. 22. Osteopenia, osteoporosis and osteoporotic compression fracture. 23. Left axis deviation. 24. History of coronary artery disease, coronary angioplasty, history of congestive heart failure and history of chronic obstructive pulmonary disease. 25. Status post fall. 26. Possible diabetic neuropathy. PLAN: At this time, the patient has been ordered repeat cardiac enzymes, repeat EKG ordered, cardiology consultation requested for evaluation of the patient's possible syncope. The patient has been ordered repeat lab for the morning. Hemoglobin A1c is pending. CURRENT MEDICATIONS: Brilinta 90 mg twice a day, clonidine 0.1 mg twice a day, Cozaar 50 mg twice a day, Ecotrin 81 mg daily, Humalog low dose sliding scale coverage a.c. and at bedtime, Imdur 30 mg daily, digoxin 0.125 daily, Lasix 40 mg p.o. daily, Levaquin 750 IV q. 48, Lipitor 20 mg daily, Lopressor 100 mg twice a day, Lotrisone cream, Os-Yonis daily, Pepcid 20 twice a day, Rocephin 1 g IV daily, IV fluid 0.9 at 150 mL an hour and Tylenol 650 q. 6 p.r.n. The patient will be ordered repeat urine culture for monitoring of response to IV antibiotic. The patient has Escherichia coli urinary tract infection, which shows sensitivity to quinolones. The patient has been seen by physical therapist. The patient was not found to be a candidate for physical therapy secondary to confusion, agitation and aggressive behavior. Johnny Bliss MD
[2016-10-28 07:19] LABS: BASO # 0.05 K/mm3 (0.0-2.0); BASO % 0.7 % (0.0-3.0); EOS # 0.3 (0.0-0.7); GRAN # 4.21 (1.4-6.5); GRAN % 60.3 % (50.0-68.0); HEMOGLOBIN 8.7 g/dL (12.0-16.0); LYMPH # 1.7 (1.2-3.4); LYMPH % 24.4 % (22.0-35.0); MEAN CELL VOLUME 92.2 fl (80.0-105.0); MEAN CORPUSCULAR HEMOGLOBIN 30.9 pg (25.0-35.0); MEAN CORPUSCULAR HGB CONC 33.5 g/dl (31.0-37.0); MEAN PLATELET VOLUME 8.5 fl (7.0-11.0); MONO # 0.7 (0.1-0.6); MONO % 10.6 % (1.0-6.0); PLATELET COUNT 246 10^3/uL (120.0-450.0); RBC 2.82 10^6/uL (3.5-6.1); RED CELL DISTRIBUTION WIDTH 13.9 % (11.5-14.5)
[2016-10-28 07:38] LABS: ALB/GLOB RATIO 1.2 (1.1-1.8); ALBUMIN 3.1 g/dL (3.0-4.8); ALT/SGPT 25 U/L (7-56); AST/SGOT 23 U/L (15-39); BLOOD UREA NITROGEN 19 mg/dL (7-21); CALCIUM 8.1 mg/dL (8.4-10.5); GFR AFRICAN-AMERICAN > 60; GFR NON-AFRICAN AMERICAN 52
[2016-10-28] MEDS: Insulin Lispro (humaLOG) LOW Coverage SC SCH ×4 (07:50→22:17)
[2016-10-28] MEDS: cefTRIAXone 1 gm 1 GM/100 ML BAG IVPB SCH (09:15)
[2016-10-28] MEDS: Sodium Chloride 0.9% 1,000 ML IV SCH ×2 (09:15→22:18)
[2016-10-28] MEDS: Calcium-Vit D 250 mg-125 Units Tab UD PO SCH (09:16)
[2016-10-28] MEDS: Clotrimazole/Betamethasone Cream(15 gm) TOP SCH ×2 (09:18→17:24)
--- NOTE | 2016-10-28 13:23 | CARD ---
APPROVED REPORT EKG Measurement Heart [id number] <Conclusion> Sinus rhythm with 1st degree AV block Possible Left atrial enlargement Left axis deviation Low voltage QRS Inferior infarct, age undetermined Cannot rule out Anteroseptal infarct, age undetermined Abnormal ECG
[2016-10-28] MEDS: Digoxin 125 mcg (0.125 mg) Tab PO SCH (13:47)
[2016-10-28] MEDS: POLYETHYLENE GLYCOL 3350 17 GM/Dose PACKET PO SCH (17:22)
--- NOTE | 2016-10-28 19:14 | CP.PCM.PN ---
Subjective - Date & Time of Evaluation Date of Evaluation: 10/28/16 Time of Evaluation: 06:45 - Subjective Subjective: Pt s/e bedside. Patient is complaining of epigastric abdominal pain. Patient further states that she has not passed a BM since last . Was also complaining of chest pain at the sternal border and xiphoid process. ACS work up was negative. Abd U/s and CT ordered. Will follow up. Spoke extensively with her daughter regarding the lung mass. Patient's daughter is worried and would like to discuss working up the nodule in patient. Will discuss with Dr. Morris Objective - Vital Signs/Intake and Output Vital Signs (last 24 hours): Temp Pulse Resp BP Pulse Ox 98.1 F 73 16 155/65 H 98 10/28/16 15:29 10/28/16 15:29 10/28/16 15:29 10/28/16 17:22 10/28/16 15:29 Intake and Output: 10/28/16 10/29/16 18:59 06:59 Intake Total 600 Output Total 600 Balance 0 - Medications Medications: Current Medications Acetaminophen (Tylenol 325mg Tab) 650 mg PO Q6H PRN PRN Reason: Pain, moderate (4-7) Last Admin: 10/25/16 23:39 Dose: 650 mg Aspirin (Ecotrin) 81 mg PO DAILY [facility] Last Admin: 10/28/16 09:17 Dose: 81 mg Atorvastatin Calcium (Lipitor) 20 mg PO DIN [facility] Last Admin: 10/28/16 17:22 Dose: 20 mg Betamethasone/Clotrimazole (Lotrisone) 0 gm TOP BID [facility] Last Admin: 10/28/16 17:24 Dose: 1 u Calcium/Vitamin D (Oscal-D 250 Mg-125 Units Tab) 1 tab PO DAILY [facility] Last Admin: 10/28/16 09:16 Dose: 1 tab Clonidine HCl (Catapres) 0.1 mg PO BID [facility] Last Admin: 10/28/16 17:22 Dose: 0.1 mg Digoxin (Lanoxin) 0.125 mg PO 1400 [facility] Last Admin: 10/28/16 13:47 Dose: 0.125 mg Famotidine (Pepcid) 20 mg PO BID [facility] Last Admin: 10/28/16 17:22 Dose: 20 mg Furosemide (Lasix) 40 mg PO DAILY [facility] Last Admin: 10/28/16 09:17 Dose: 40 mg Ceftriaxone Sodium (Rocephin 1 Gram Ivpb) 1 gm in 100 mls @ 100 mls/hr IVPB DAILY [facility] PRN Reason: Protocol Last Admin: 10/28/16 09:15 Dose: 100 mls/hr Sodium Chloride (Sodium Chloride 0.9%) 1,000 mls @ 80 mls/hr IV .[id number] [facility] Last Admin: 10/28/16 09:15 Dose: 80 mls/hr Insulin Human Lispro (Humalog Low) 0 units SC ACHS [facility] PRN Reason: Protocol Last Admin: 10/28/16 17:21 Dose: 3 units Isosorbide Mononitrate (Imdur) 30 mg PO DAILY [facility] Last Admin: 10/28/16 09:17 Dose: 30 mg Levofloxacin (Levaquin) 750 mg PO Q48H [facility] Losartan Potassium (Cozaar) 50 mg PO BID [facility] Last Admin: 10/28/16 17:21 Dose: 50 mg Metoprolol Tartrate (Lopressor) 100 mg PO BID [facility] Last Admin: 10/28/16 17:22 Dose: 100 mg Polyethylene Glycol (Miralax) 17 gm PO BID [facility] Last Admin: 10/28/16 17:22 Dose: 17 gm Ticagrelor (Brilinta) 60 mg PO BID [facility] Last Admin: 10/28/16 18:26 Dose: 60 mg - Additional Findings Additional findings: VS as above Constitutional: a&o x 4, nad Head and Neck: neck supple, no jvd, trachea midline, carotid midline, no cervical/head mass Eyes: kia, nonicteric sclera, eom intact ENT: auditory acuity grossly intact, throat not congested, no nasal deformity Cardio: rrr, no m/r/g, no carotid bruit, nml s1, s2 Pulm: no accessory muscle use, equal nml breath sounds bilaterally, ctab Abd: +abdomen soft but distended, mildly tender; +Hiatal hernia; nbs x 4 q Derm: no rashes, no ulcers, no lesions Extr: no edema, no cyanosis, no calf tenderness, no lesions, no varicosities Neuro: cn II-XII grossly intact, ue and le 5/5 muscle strength bilaterally, no los ue, le bilaterally and core Assessment and Plan - Assessment and Plan (Free Text) Assessment: 89yo female PMHx [place] s/p stent, HTN, DM2, constipation, scoliosis, partial masectomy, CHF, COPD, catarats s/p surgery, glaucoma, macular degeneration, arthritis, PUD, depression, cystitis, frequent UTI presenting with fall and chest pain Plan: 1. Chest pain: Resolved - Patient has a cardiac history of [place] and s/p stent placement - EKG x 4 revealed no acute changes relative to prior EKGs - STAT EKG Ordered this am, 10/28/16, also negative - Troponin negative x 4 - 4th Troponin ordered STAT this am, 10/28/16, also negative - Echo 10/26 reviewed; revealed LVEF of 50%, RSVP 29mmHg, moderate AR; see full report - D-dimer elevated however CTA revealed no PE however was notable for mass-like opacity in the DAVID (infectious vs inflammatory vs neoplastic); see full report - Lipid panel reviewed - TSH within normal limits - ASA 81mg po daily - Lipitor 20mg po hs - Brilinta 90mg po bid - Duplex b/l LE : negative for DVT 2. Lung Mass likely 2/2 Neoplasm VS Pneumonia VS Unknown Etiology - CXR 10/25 reviewed; minimal density at L lung apex; see full report - CT chest without contrast revewed; 2.7cm x 3.0cm wedge-shaped area of consolidation in the left apical segment extending to the pleural margin. The margins are significantly irregular. While this could simply represent consolidation, neoplasm is not excluded and correlation with a PET-CT is recommended; see full report - Pt has history of smoking, quit many years ago. - Continue Levaquin 750mg ivpb daily Day 4 for empiric treatment for pneumonia - Afebrile, no leukocytosis - Pulmonology consult: Dr. Zhao - Discussed o/p f/u with pt's daughterKaris - RPT CT Scan and Follow with CT- PET Scan. Patient's daughter would like this done inpatient. Will d/w Dr Morris. 3. s/p Fall with possible syncopal event - Cardiac Workup as detailed above - Head CT 10/25 revealed no acute intracranial abnormalities; see full report - Carotid US revealed b/l 20-39% proximal ICA stenoses, antegrade flow in b/l vertebral arteries - RPR : nonreactive - Cardiology consulted - Dr. Gaffney - Neurology consulted - Dr. Crockett - Psych consulted for AMS - Patient uses a walker at home and has had multiple mechanical falls in the past - Lumbosacral XR: profound osteopenia, multiple presumed old osteopenic compression fractures. New acute superimposed fracture is not excluded. - Orthostatic VS 4. Abdominal Pain, likely 2/2 Umbilical Hernia VS Constipation - Patient has had an umbilical hernia 'for years,' according to daughter - F/U CT Abdomen - F/U US Abdomen - Patient given Mirolax BID 5. UTI - UA on 10/25 notable for nitrates, mod leuk esterase and large bacteria - Urine Culture positive for pansensitive Ecoli - Rocephin 1gm ivpb daily, Day 4 6. Hx of CAD s/p stents - Digoxin: 1.2 - Continue home Ticagrelor 7. Hx of Diabetes Mellitus - Fingersticks ACHS - low dose RISS - Consistent carb diet 8. Hx of HTN - Cozaar, Imdur, Catapres 9. Hx of CHF - Lasix 10. Hx of Arthritis - Oscal-D 11. DVT/GI PPX - SCDs/pepcid Patient seen and case discussed with attending,
[2016-10-29 07:09] VITALS: RESP 20
[2016-10-29] MEDS: Insulin Lispro (humaLOG) LOW Coverage SC SCH ×2 (08:29→12:05)
--- NOTE | 2016-10-29 08:51 | CON ---
DATE OF CONSULTATION: 10/28/2016 HISTORY: The patient is an 89-year-old woman who presents after a fall at home. No loss of consciousness noted. PAST MEDICAL HISTORY: Reveals an acute myocardial infarction in 2012, treated with a stent of the LAD. She suffers from diabetes mellitus, hypertension, as well as COPD. She complained of chest pain and was found to have fractures of her ribs on CT scan. Currently, the patient is in bed, awake, alert without angina. SOCIAL HISTORY AND REVIEW OF SYSTEMS: Reviewed, but noncontributory. PHYSICAL EXAMINATION: VITAL SIGNS: Blood pressure 154/68, heart rate in the 90s. NECK: Negative JVD. LUNGS: Without rales. HEART: S1, S2. EXTREMITIES: Without edema. DIAGNOSTIC DATA: EKG reveals normal sinus rhythm with an old inferior wall AL of indeterminate duration with poor R-wave progression across the anterior precordium. Echocardiogram reveals an ejection fraction of 50% with [id number] aortic insufficiency. IMPRESSION 1. Status post mechanical fall. 2. No syncope noted. 3. History of coronary artery disease. 4. History of anterior wall myocardial infarction. 5. Chronic obstructive pulmonary disease. 6. Diabetes mellitus. Given these findings, the patient still remains on high-dose Brilinta. We will change to low-dose Brilinta and discontinue telemetry. Mata Gaffney MD
[2016-10-29] MEDS ORDERED: levoFLOXacin 750 MG TAB PO SCH (10:00)
[2016-10-29] MEDS: Calcium-Vit D 250 mg-125 Units Tab UD PO SCH (10:22)
[2016-10-29] MEDS: POLYETHYLENE GLYCOL 3350 17 GM/Dose PACKET PO SCH (10:22)
[2016-10-29] MEDS: cefTRIAXone 1 gm 1 GM/100 ML BAG IVPB SCH (10:25)
[2016-10-29] MEDS: Clotrimazole/Betamethasone Cream(15 gm) TOP SCH (10:25)
--- NOTE | 2016-10-29 13:08 | CP.PCM.PN ---
<Camilo Negro - Last Filed: 10/29/16 15:07> Subjective - Date & Time of Evaluation Date of Evaluation: 10/29/16 Time of Evaluation: 10:00 - Subjective Subjective: Psychiatry Consult Note. This is a n 89 year old female w/ PMH of depression who was admitted for pain and possible syncopal episode. Psychiatry was consulted on the case for AMS. Patient was verbally aggressive and combative during the interview, but did admit being depressed. After short questioning patient refused to answer any more questions and asked us to get out and to go hang ourselves. PMH: Depression SH: lives at home with her ; denies alcohol, tobacco, and drug use. Has children FH: unknown All: acetaminophen, codeine, docusate sodium, ibuprofen, oxycodone HCl Meds: Pepcid, Humalog, Brilinta, Januvia, Prandin, Klor-Con, Lopressor, Glucophage, Cozaar, Imdur, Glucotrol, Lasix, Lanoxin, Lotrisone, Catapres, Oscal -D, Aspirin, Tylenol MSE: Patient is 89 year old woman laying comfortably in the bed with hospital gown on. Her mood was angry and irritable. His affect was euthymic, speech was rapid, loud, but articulate. Patient may have possible visual hallucinations; mentioning that the medical team brought horses in last night. Patient has poor insight and judgement about her current state. She think medical team is making her condition worse. 89 year old w/ hx of depression is admitted for possible syncopal episode, and found to have altered mental status. Possible hospital acquired delirium w/ psychosis vs dementia w/ psychosis. Objective - Vital Signs/Intake and Output Vital Signs (last 24 hours): Temp Pulse Resp BP Pulse Ox 98.7 F 81 20 168/64 H 99 10/29/16 06:00 10/29/16 10:29 10/29/16 06:00 10/29/16 10:29 10/29/16 06:00 Intake and Output: 10/29/16 10/29/16 06:59 18:59 Intake Total 2640 Balance 2640 - Medications Medications: Current Medications Acetaminophen (Tylenol 325mg Tab) 650 mg PO Q6H PRN PRN Reason: Pain, moderate (4-7) Last Admin: 10/25/16 23:39 Dose: 650 mg Aspirin (Ecotrin) 81 mg PO DAILY [facility] Last Admin: 10/29/16 10:22 Dose: 81 mg Atorvastatin Calcium (Lipitor) 20 mg PO DIN [facility] Last Admin: 10/28/16 17:22 Dose: 20 mg Betamethasone/Clotrimazole (Lotrisone) 0 gm TOP BID [facility] Last Admin: 10/29/16 10:25 Dose: 1 appful Calcium/Vitamin D (Oscal-D 250 Mg-125 Units Tab) 1 tab PO DAILY [facility] Last Admin: 10/29/16 10:22 Dose: 1 tab Clonidine HCl (Catapres) 0.1 mg PO BID [facility] Last Admin: 10/29/16 10:23 Dose: 0.1 mg Digoxin (Lanoxin) 0.125 mg PO 1400 [facility] Last Admin: 10/28/16 13:47 Dose: 0.125 mg Famotidine (Pepcid) 20 mg PO BID [facility] Last Admin: 10/29/16 10:22 Dose: 20 mg Furosemide (Lasix) 40 mg PO DAILY [facility] Last Admin: 10/29/16 10:24 Dose: 40 mg Ceftriaxone Sodium (Rocephin 1 Gram Ivpb) 1 gm in 100 mls @ 100 mls/hr IVPB DAILY [facility] PRN Reason: Protocol Last Admin: 10/29/16 10:25 Dose: 100 mls/hr Sodium Chloride (Sodium Chloride 0.9%) 1,000 mls @ 80 mls/hr IV .[id number] [facility] Last Admin: 10/28/16 22:18 Dose: 80 mls/hr Insulin Human Lispro (Humalog Low) 0 units SC ACHS [facility] PRN Reason: Protocol Last Admin: 10/29/16 08:29 Dose: Not Given Isosorbide Mononitrate (Imdur) 30 mg PO DAILY [facility] Last Admin: 10/29/16 10:24 Dose: 30 mg Levofloxacin (Levaquin) 750 mg PO Q48H [facility] Last Admin: 10/29/16 10:29 Dose: 750 mg Losartan Potassium (Cozaar) 50 mg PO BID [facility] Last Admin: 10/29/16 10:29 Dose: 50 mg Metoprolol Tartrate (Lopressor) 100 mg PO BID [facility] Last Admin: 10/29/16 10:23 Dose: 100 mg Polyethylene Glycol (Miralax) 17 gm PO BID [facility] Last Admin: 10/29/16 10:22 Dose: 17 gm Risperidone (Risperdal Tab) 0.25 mg PO [facility] PRN Reason: Protocol Ticagrelor (Brilinta) 60 mg PO BID [facility] Last Admin: 10/29/16 11:24 Dose: 60 mg Assessment and Plan - Assessment and Plan (Free Text) Assessment: 89 year old w/ hx of depression is admitted for possible syncopal episode, and found to have altered mental status. Possible hospital acquired delirium w/ psychosis vs dementia w/ psychosis. Plan: Added Resperidone 0.25mg for affect reduction. <Jordy Mayo H - Last Filed: 10/29/16 23:00> Subjective - Subjective Subjective: pt very irritable,mildly disoriented. pt appears to have a dementiform disorder. daughter,a nurse will not allow pt to be medicated Objective - Vital Signs/Intake and Output Vital Signs (last 24 hours): Temp Pulse Resp BP Pulse Ox 97.6 F 74 20 132/57 L 98 10/29/16 16:30 10/29/16 16:30 10/29/16 16:30 10/29/16 16:30 10/29/16 16:30
[2016-10-29] MEDS: Sodium Chloride 0.9% 1,000 ML IV SCH (15:06)
--- NOTE | 2016-10-29 15:26 | CP.PCM.DIS ---
Provider - Provider Date of Admission: 10/28/16 11:01 Attending physician: Martell Morris MD Primary care physician: Conrad Clarke DO Consults: GI: Dr. Sears Cardiology: Dr. Gaffney Time Spent in preparation of Discharge (in minutes): 45 Hospital Course - Lab Results Lab Results: Most Recent Lab Values WBC 7.0 10^3/ul (4.5-11.0) 10/28/16 07:07 RBC 2.82 10^6/uL (3.5-6.1) L 10/28/16 07:07 Hgb 8.7 g/dL (12.0-16.0) L 10/28/16 07:07 Hct 26.0 % (36.0-48.0) L 10/28/16 07:07 MCV 92.2 fl (80.0-105.0) 10/28/16 07:07 MCH 30.9 pg (25.0-35.0) 10/28/16 07:07 MCHC 33.5 g/dl (31.0-37.0) 10/28/16 07:07 RDW 13.9 % (11.5-14.5) 10/28/16 07:07 Plt Count 246 10^3/uL (120.0-450.0) 10/28/16 07:07 MPV 8.5 fl (7.0-11.0) 10/28/16 07:07 Gran % 60.3 % (50.0-68.0) 10/28/16 07:07 Lymph % (Auto) 24.4 % (22.0-35.0) 10/28/16 07:07 [place] % (Auto) 10.6 % (1.0-6.0) H 10/28/16 07:07 Eos % (Auto) 4.0 % (1.5-5.0) 10/28/16 07:07 Baso % (Auto) 0.7 % (0.0-3.0) 10/28/16 07:07 Gran # 4.21 (1.4-6.5) 10/28/16 07:07 Lymph # 1.7 (1.2-3.4) 10/28/16 07:07 [place] # 0.7 (0.1-0.6) H 10/28/16 07:07 Eos # 0.3 (0.0-0.7) 10/28/16 07:07 Baso # 0.05 K/mm3 (0.0-2.0) 10/28/16 07:07 D-Dimer, Quantitative 1.36 mg/L FEU (0-0.50) H 10/25/16 15:07 Sodium 136 mmol/L (132-148) 10/28/16 07:07 Potassium 3.8 mmol/L (3.6-5.0) 10/28/16 07:07 Chloride 105 mmol/L (95-110) 10/28/16 07:07 Carbon Dioxide 22 mmol/L (21-33) 10/28/16 07:07 Anion Gap 13 (10-20) 10/28/16 07:07 BUN 19 mg/dL (7-21) 10/28/16 07:07 Creatinine 1.0 mg/dL (0.5-1.4) 10/28/16 07:07 Est GFR ( Amer) > 60 10/28/16 07:07 Est GFR (Non-Af Amer) 52 10/28/16 07:07 POC Glucose (mg/dL) 195 mg/dL (65-110) H 10/29/16 11:33 Random Glucose 120 mg/dL (70-110) H 10/28/16 07:07 Hemoglobin A1c 7.1 % (4.2-6.5) H 10/26/16 06:10 Calcium 8.1 mg/dL (8.4-10.5) L 10/28/16 07:07 Phosphorus 3.9 mg/dL (2.5-4.5) 10/27/16 06:00 Magnesium 1.9 mg/dL (1.7-2.2) 10/27/16 06:00 Iron 93 ug/dL (45-180) 10/26/16 08:00 TIBC 327 ug/dL (265-497) 10/26/16 08:00 % Saturation 28 % (20-55) 10/26/16 08:00 Transferrin 273.34 mg/dL (206-381) 10/26/16 09:00 Ferritin 22.4 ng/mL 10/26/16 08:00 Total Bilirubin 0.3 mg/dL (0.2-1.3) 10/28/16 07:07 AST 23 U/L (15-39) 10/28/16 07:07 ALT 25 U/L (7-56) 10/28/16 07:07 Alkaline Phosphatase 62 U/L (38-133) 10/28/16 07:07 Troponin I < 0.01 ng/mL 10/27/16 15:00 Total Protein 5.8 g/dL (5.8-8.3) 10/28/16 07:07 Albumin 3.1 g/dL (3.0-4.8) 10/28/16 07:07 Globulin 2.7 gm/dL 10/28/16 07:07 Albumin/Globulin Ratio 1.2 (1.1-1.8) 10/28/16 07:07 Triglycerides 245 mg/dL (35-160) H 10/26/16 06:10 Cholesterol 198 mg/dL (130-200) 10/26/16 06:10 LDL Cholesterol Direct 150 mg/dL (0-129) H 10/26/16 06:10 HDL Cholesterol 28 mg/dL (29-60) L 10/26/16 06:10 Vitamin B12 472 pg/mL (239-931) 10/26/16 08:00 25-OH Vitamin D Total 32.5 NG/ML (30.0-100.0) 10/26/16 06:10 Folate > 20.0 ng/mL 10/26/16 08:00 Procalcitonin < 0.05 NG/ML (0.19-0.49) L 10/26/16 06:10 Free T4 1.33 ng/dL (0.78-2.19) 10/26/16 06:10 TSH 3rd Generation 1.94 mIU/mL (0.46-4.68) 10/25/16 12:54 Urine Color Yellow (YELLOW) 10/25/16 08:30 Urine Appearance Sl cloudy (CLEAR) 10/25/16 08:30 Urine pH 8.0 (4.7-8.0) 10/25/16 08:30 Ur Specific [place] 1.015 (1.005-1.035) 10/25/16 08:30 Urine Protein 30 mg/dL (<30 mg/dL) H 10/25/16 08:30 Urine Glucose (UA) Negative mg/dL (NEGATIVE) 10/25/16 08:30 Urine Ketones Negative mg/dL (NEGATIVE) 10/25/16 08:30 Urine Blood Negative (NEGATIVE) 10/25/16 08:30 Urine Nitrate Positive (NEGATIVE) H 10/25/16 08:30 Urine Bilirubin Negative (NEGATIVE) 10/25/16 08:30 Urine Urobilinogen 0.2 E.U./dL (<1 E.U./dL) 10/25/16 08:30 Ur Leukocyte Esterase Moderate [place]/uL (NEGATIVE) H 10/25/16 08:30 Urine RBC Negative /hpf (0-2) 10/25/16 08:30 Urine WBC Tntc /hpf (0-6) 10/25/16 08:30 Ur Epithelial Cells 0 - 2 /hpf (0-5) 10/25/16 08:30 Urine Bacteria Large (NEG) 10/25/16 08:30 Digoxin 1.2 ng/mL (0.8-2.0) 10/25/16 12:54 RPR Nonreactive (NONREACTIVE) 10/26/16 06:10 Discharge Exam - Head Exam Head Exam: ATRAUMATIC, NORMAL INSPECTION, NORMOCEPHALIC Discharge Plan - Discharge Medications Prescriptions: levoFLOXacin [Levaquin] 750 mg PO Q48H #4 tab - Follow Up Plan Condition: GOOD Disposition: HOME/ ROUTINE Instructions: Chest Pain (DC), Chest Pain (GEN), Urinary Tract Infection in Women (DC), Urinary Tract Infection in Women (GEN), Fall Prevention for Older Adults (GEN), Altered Mental Status (GEN) Additional Instructions: 1. Please follow up closely outpatient with your PMD regarding your CT in the hospital 2. Consider getting a CT-PET Scan outpatient to follow up on your Left Upper Lobe Lesion in your Chest - Remember that you need to repeat the CT Scan in 4 weeks 3. Repeat a Urine Culture and Blood work out patient to make sure your infection has resolved. 4. Note that you have a diagnosis of Anemia of Chronic Disease - meaning, due to age, your blood counts are lower than normal. Please be wary of symptoms like fatigue, dizziness, weakness. Report to an ER if you see blood in your vomit, stool, or urine, or if you see very dark, black, charry stools. 5. Please return to the ED should your symptoms worsen. 6. Please take your Levaquin, the antibiotic, every other day for the next 8 days (a total of 4 doses) 7. Spoke to Karis, your daughter, regarding plan of treatment. Referrals: Conrad Clarke, DO [Primary Care Provider] - Follow up with primary
[2016-10-29] MEDS: Digoxin 125 mcg (0.125 mg) Tab PO SCH (15:37)
[2016-10-29 15:39] VITALS: PULSE 71
--- NOTE | 2016-10-29 15:42 | PN ---
CARDIOLOGY FOLLOWUP DATE: 10/29/2016 SUBJECTIVE: The patient is mildly confused without shortness of breath, without chest pain. PHYSICAL EXAMINATION: VITAL SIGNS: Blood pressure varies from 118-168 systolic, heart rate in the 80s. NECK: Negative JVD. LUNGS: Without rales. HEART: Reveal S1, S2 with 2/6 systolic ejection murmur. EXTREMITIES: Without edema LABORATORY DATA: Hemoglobin is 8.4. Chemistries: Glucose is 137. Echocardiogram reveals good LV function with aortic insufficiency. IMPRESSION 1. Status post mechanical fall. 2. Aortic insufficiency. 3. History of percutaneous transluminal coronary angioplasty and stent to 2011. 4. Old anterior wall myocardial infarction. 5. Chronic obstructive pulmonary disease. 6. Diabetes mellitus. PLAN: Given these findings, I have reviewed the patient's medical records. The patient underwent her last catheterization in 2012. We will DC the Brilinta and we will continue the aspirin. I have discussed with the patient and family in detail. Mata Gaffney MD
[2016-10-29 16:50] VITALS: BP 132/57; PULSE 74; TEMP 97.6; O2SAT 98
== END 2016-10-29 17:35 | disposition home health service (06) | DRG 302 ==
LOC: ED 07:02 → ERH 11:03 → 3RNO 13:38 → OBSVTOIN 10-28 11:01
PROVIDERS: ADMIT Internal Medicine; ATTEND Internal Medicine
DX: I25.118 Atherosclerotic heart disease of native coronary artery with other forms of angina pectoris (principal); J18.9 Pneumonia, unspecified organism; S22.43XA Multiple fractures of ribs, bilateral, initial encounter for closed fracture; E11.42 Type 2 diabetes mellitus with diabetic polyneuropathy; I11.0 Hypertensive heart disease with heart failure; I50.9 Heart failure, unspecified; E11.39 Type 2 diabetes mellitus with other diabetic ophthalmic complication; F03.90 Unspecified dementia, unspecified severity, without behavioral disturbance, psychotic disturbance, mood disturbance, and anxiety; M80.88XA Other osteoporosis with current pathological fracture, vertebra(e), initial encounter for fracture; N30.90 Cystitis, unspecified without hematuria; H40.9 Unspecified glaucoma; H35.30 Unspecified macular degeneration; J44.9 Chronic obstructive pulmonary disease, unspecified; M19.90 Unspecified osteoarthritis, unspecified site; K59.00 Constipation, unspecified; F32.9 Major depressive disorder, single episode, unspecified; R26.9 Unspecified abnormalities of gait and mobility; E86.0 Dehydration; K27.9 Peptic ulcer, site unspecified, unspecified as acute or chronic, without hemorrhage or perforation; E78.2 Mixed hyperlipidemia; B96.20 Unspecified Escherichia coli [E. coli] as the cause of diseases classified elsewhere; E11.65 Type 2 diabetes mellitus with hyperglycemia; D63.8 Anemia in other chronic diseases classified elsewhere; I35.1 Nonrheumatic aortic (valve) insufficiency; E04.1 Nontoxic single thyroid nodule; M40.204 Unspecified kyphosis, thoracic region; K42.9 Umbilical hernia without obstruction or gangrene; R59.0 Localized enlarged lymph nodes; Z96.641 Presence of right artificial hip joint; Z96.1 Presence of intraocular lens; W01.0XXA Fall on same level from slipping, tripping and stumbling without subsequent striking against object, initial encounter; Y93.01 Activity, walking, marching and hiking; Z98.41 Cataract extraction status, right eye; Z98.42 Cataract extraction status, left eye; Z95.5 Presence of coronary angioplasty implant and graft; I25.2 Old myocardial infarction; Y92.012 Bathroom of single-family (private) house as the place of occurrence of the external cause; Z87.891 Personal history of nicotine dependence; Z79.84 Long term (current) use of oral hypoglycemic drugs